=== PATIENT | male | born 1945 | race Caucasian/White ===

== ENCOUNTER → 2017-02-28 | Outpatient (CLI) | payer MEDICARE, BC ==
[2013-10-04 11:09] VITALS: BMI 26.4
[~2017-02-28] MED LIST: ACET-1966 PO; ACYC800T99 PO; AMOX-559 PO; ASP325 PO; ASPI-717 PO; BACL-1 PO; BENZ200C15 PO; BIS10S PR; CAPT50TA PO; CEFU250T11 PO; CEFU500T10 PO; CEPH-13 PO; CIPDEXPT EACH EAR; CLIN-75 PO; DIGO125T73 PO; DOC100 PO; DOCU-416 PO; ENAL-1 PO; ENAL2.5T52 PO; FURO-45 PO; FURO-47 PO; FURO20TA19 PO; GABA-503 PO; GLUC1TAB2; GOLYTE PO; HYDR-385 PO; HYDR-4309; HYDR1TAB PO; HYDR25SU51 RC; KET10 PO; MET50 PO; METO-222 PO; METO-257 PO; METO100T20 PO; METO50TA19 PO; MOD PO; MOM PO; MULT-948 PO; NAPR-1043 PO; NAPR220C12 PO; OSTEOBYFLEX PO; OXYC-763 PO; PRED20TA6 PO; RIV10 PO; RIVA10TA PO; RIVA20TA PO; SPIR1TAB28 PO; SPIR25TA78 PO; TER2 PO; TERA1CAP36 PO; TERA2CAP54 PO; VALA100059 PO; WARF10TA29 PO; [UNRECOGNIZED DRUG - CODE] PO
== END ==
LOC: LAB 13:37
PROVIDERS: ATTEND Nurse Practitioner Family
DX: I10 Essential (primary) hypertension (principal)
CPT/HCPCS: 36415; 82310; 82374; 82435; 82565; 82947; 84132; 84295; 84520

== ENCOUNTER 2017-03-23 01:02 | Day surgery (SDC) | payer MEDICARE, BC ==
[2013-10-04 11:09] VITALS: Ht 182.9 cm; Wt 97.5 kg
[2017-03-23] VITALS (8 sets, daily range): BP systolic 104–139; BP diastolic 71–104
[~2017-03-23] VITALS: Ht 182.9 cm; Wt 97.5 kg
[2017-03-23] MEDS ORDERED: PROPOFOL EMUL(*) 10MG/ML 20 ML 40 ML ONE (07:02)
[2017-03-23] MEDS ORDERED: LIDOCAINE/SOD BICARB 8.4% SYR ID ONE (08:15)
[2017-03-23] MEDS ORDERED: NORMOSOL R SOLN(*) 1000 ML BAG 1,000 ML IV PRN (08:15)
[2017-03-23] MEDS ORDERED: MIDAZOLAM 2 MG/2 ML VIAL IVP ONE (08:15)
[2017-03-23] MEDS ORDERED: PHENYLEPHRINE/NS/PF 0.4MG/10ML ONE ×2 (09:33→10:01)
[2017-03-23] MEDS ORDERED: PROPOFOL EMUL(*) 10MG/ML 20 ML 20 ML ONE (09:48)
--- NOTE | 2017-03-23 10:41 | Short(Outpt) Discharge Summary ---
Discharge Summary Reason for Hosp/Final Diag: (1) Family history of malignant neoplasm of gastrointestinal tract Hospital Course & Plan: Colonoscopy with polypectomy x8 completed without problems. Departure Discharge to: Home, Self Care Discharge Instructions Home Meds Active Scripts Cefuroxime Axetil (CEFUROXIME) 500 Mg Tablet, 1 TAB PO BID, #20 TAB 0 Refills Prov:JAIMIE RAMIREZ APRNP-C 02/28/17 Peg/Electrolytes (GOLYTELY SOLUTION) 4,000 Ml Soln, 1 GAL PO ONCE, #1 GAL 0 Refills Prov:GÉNESIS ESCOBAR MD 02/22/17 Terazosin Hcl (TERAZOSIN HCL) 2 Mg Capsule, 1 CAP PO QHS, #90 CAPSULE 3 Refills Prov:JAIMIE RAMIREZ APRNP- 01/06/17 Metoprolol Tartrate (METOPROLOL TARTRATE) 100 Mg Tablet, 1 TAB PO BID, #180 TAB 3 Refills Prov:JAIMIE RAMIREZ APRNP- 01/06/17 Digoxin (DIGOXIN) 125 Mcg Tablet, 1 TAB PO QDAY, #90 TAB 3 Refills Prov:JAIMIE RAMIREZ APRNP-C 01/06/17 Enalapril Maleate (ENALAPRIL MALEATE) 5 Mg Tablet, 1 TAB PO DAILY, #90 TAB 3 Refills Prov:JAIMIE RAMIREZ APRN [facility] 01/06/17 Hydrocodone Bit/Acetaminophen (HYDROCODON-ACETAMINOPHEN 5-325) 1 Each Tablet, 1 TAB PO Q6H Y for pain, #120 TAB 0 Refills Prov:JAIMIE RAMIREZ APRNP- 09/13/16 Reported Medications Furosemide (FUROSEMIDE) 40 Mg Tablet, 1 TAB PO QODAY, TAB 03/16/17 Spironolactone (SPIRONOLACTONE) 25 Mg Tablet, 25 MG PO QODAY, TAB 03/16/17 Rivaroxaban 10 MG (Xarelto 10 MG) Unknown Strength Tablet, PO QDAY 02/22/17 Discontinued Reported Medications Multivitamin W-Minerals/Lutein (VISION PLUS LUTEIN VITAMIN TAB) 1 Each Tablet, 1 EACH PO DAILY 01/08/16 Discontinued Scripts Benzonatate (BENZONATATE) 200 Mg Capsule, 1 CAP PO TID Y for COUGH, #15 CAPSULE 0 Refills Prov:JAIMIE RAMIREZ APRN [facility]-C 02/28/17 Prednisone (PREDNISONE) 20 Mg Tablet, 2 TAB PO DAILY for 5 Days, #10 TAB 0 Refills Prov:TANYAANA MARIAJAIMIE KEZIA ADMINISTRATOR-C 02/28/17 Furosemide (FUROSEMIDE) 40 Mg Tablet, 0.5 TAB PO EVERY OTHER DAY, #45 TAB 3 Refills Prov:TEDSushilaANA MARIAJAIMIE KEZIA NOONANP-C 01/06/17 Spironolactone (SPIRONOLACTONE) 25 Mg Tab, 0.5 TAB PO QODAY, #45 TAB 3 Refills TAKE ONE-HALF TAB BY MOUTH DAILY UNLESS WEIGHT INCREASES BY 3 POUNDS IN 24 HOURS THEN TAKE ONE TAB. Prov:JAIMIE RAMIREZ KEZIA NOONANP-C 01/06/17 Diet: Regular Activity: As Tolerated Special Instructions: Your colonoscopy was completed without any problems. I removed 8 polyps from your colon and they were sent to pathology. My office will call you in the next week and let you know that the polyps are and when your next colonoscopy should be (likely 3 or 5 years depending on results). Don't start taking Xarelto until 03/26/17, to avoid bleeding at the biopsy sites. Call my office if you experience rectal bleeding or if you would like to have the hemorrhoids removed. GÉNESIS ESCOBAR MD Mar 23, 2017 10:41
== END 2017-03-23 11:30 | disposition home or self-care (01) ==
LOC: OR 01:02
PROVIDERS: ATTEND Surgery
DX: Z12.11 Encounter for screening for malignant neoplasm of colon (principal); Z80.0 Family history of malignant neoplasm of digestive organs; D12.0 Benign neoplasm of cecum; D12.3 Benign neoplasm of transverse colon; D12.4 Benign neoplasm of descending colon; D12.5 Benign neoplasm of sigmoid colon; K62.1 Rectal polyp
CPT/HCPCS: 00811; 45385; 88305; J2370; J2704

== ENCOUNTER → 2017-11-15 | Outpatient (CLI) | payer MEDICARE, BC ==
[2013-10-04 11:09] VITALS: BMI 26.4
[~2017-11-15] MED LIST changes: -SPIR25TA78 PO; +SPIR25TA80 PO
[2017-11-15 14:35] LABS: PLATELET COUNT, AUTOMATED 172 K/uL (150-450)
--- NOTE | 2017-11-15 14:53 | RADIOLOGY IMAGING REPORT ---
FACILITY: [facility] - [place] PATIENT NAME: Jesus Chavez : 1945 MR: [id number] V: [id number] EXAM DATE: ORDERING PHYSICIAN: JAIMIE RAMIREZ TECHNOLOGIST: Location: [facility] Patient: Jesus Chavez : 1945 Visit/Account:[id number] Date of Sevice: 11/15/2017 Left knee Indication: Swollen left knee. Pain. Comparison: None available Findings: 3 views left knee were obtained. Moderate to severe narrowing is seen in the medial compartment with increased sclerosis and marginal osteophytes. Linear chondrocalcinosis projects over the lateral compartment. Mild narrowing is seen l aterally. Lateral view demonstrates narrowing with ossific spurring patellofemoral joint. Moderate to large roberta nt effusion. IMPRESSION: 1. Moderate to severe tricompartmental degenerative changes. Joint effusion without acute osseous fin ding Report Dictated By: Guillermo De Paz MD at 11/15/2017 2:48 PM Report E-Signed By: Guillermo De Paz MD at 11/15/2017 2:49 PM [id number]
== END ==
LOC: RAD 14:05
PROVIDERS: ATTEND Nurse Practitioner Family
DX: M17.12 Unilateral primary osteoarthritis, left knee (principal); M25.462 Effusion, left knee; M25.562 Pain in left knee
CPT/HCPCS: 36415; 85025; 85379; 86140

== ENCOUNTER → 2018-01-20 | Outpatient (CLI) | payer MEDICARE, BC ==
[2013-10-04 11:09] VITALS: BMI 26.4
[~2018-01-20] MED LIST changes: +ENAL-18 PO; -HYDR-4309; +HYDR-653
[2018-01-20 10:20] LABS: PLATELET COUNT, AUTOMATED 179 K/uL (150-450)
== END ==
LOC: LAB 09:54
PROVIDERS: ATTEND Nurse Practitioner Family
DX: Z12.5 Encounter for screening for malignant neoplasm of prostate (principal); Z79.01 Long term (current) use of anticoagulants; R60.9 Edema, unspecified; I48.92 Unspecified atrial flutter; I10 Essential (primary) hypertension
CPT/HCPCS: 36415; 84443; 85025; G0103; 82040; 82247; 82310; 82374; 82435; 82465; 82565; 82947; 83718; 84075; 84132; 84153; 84155; 84295; 84450; 84460; 84478; 84520

== ENCOUNTER → 2018-01-25 | Outpatient (CLI) | payer MEDICARE, BC ==
[2013-10-04 11:09] VITALS: BMI 26.4
--- NOTE | 2018-01-25 17:51 | EKG ---
FACILITY: [facility] PATIENT NAME: YASMEEN DONG : [id number] MR: [id number] V: [id number] EXAM DATE: ORDERING PHYSICIAN: JAIMIE RAMIREZ TECHNOLOGIST: QUAN Test Reason : CHEST PAIN Blood Pressure : / mmHG Vent. Rate : 070 BPM Atrial Rate : 227 BPM P-R Int : 000 ms QRS Dur : 152 ms QT Int : 446 ms P-R-T Axes : 000 086 002 degrees QTc Int : 481 ms Atrial fibrillation with premature ventricular or aberrantly conducted complexes Right bundle branch block Abnormal ECG When compared with ECG of 05-OCT-2016 13:32, Previous ECG has undetermined rhythm, needs review Right bundle branch block has replaced Nonspecific intraventricular block Criteria for Lateral infarct are no longer present Confirmed by RAMIRO LOZANO ([id number]) on 01/26/2018 4:51:50 PM Referred By: ESDRAS Confirmed By:RAMIRO LOZANO
== END ==
LOC: RAD 10:23
PROVIDERS: ATTEND Nurse Practitioner Family
DX: Z02.9 Encounter for administrative examinations, unspecified (principal)

== ENCOUNTER 2018-02-20 12:45 | Emergency (ER) | payer MEDICARE, BC ==
[2013-10-04 11:09] VITALS: Wt 97.5 kg
--- NOTE | 2018-02-20 13:09 | EKG ---
FACILITY: [facility] PATIENT NAME: YASMEEN DONG : [id number] MR: [id number] V: [id number] EXAM DATE: ORDERING PHYSICIAN: DAXA ALEX TECHNOLOGIST: Test Reason : Blood Pressure : / mmHG Vent. Rate : 076 BPM Atrial Rate : 416 BPM P-R Int : 000 ms QRS Dur : 138 ms QT Int : 422 ms P-R-T Axes : 000 080 -10 degrees QTc Int : 474 ms Atrial fibrillation Right bundle branch block T wave abnormality, consider inferior ischemia or digitalis effect Abnormal ECG No previous ECGs available Confirmed by CASPER LANDIS ([id number]) on 02/21/2018 6:37:01 AM Referred By: Confirmed By:CASPER LANDIS
[2018-02-20] MEDS ORDERED: ALBUTEROL/IPRATROPIUM 3 ML NEB NEB ONE (13:10)
[2018-02-20 13:18] LABS: PLATELET COUNT, AUTOMATED 237 K/uL (150-450)
--- NOTE | 2018-02-20 14:16 | RADIOLOGY IMAGING REPORT ---
FACILITY: [facility] PATIENT NAME: Jesus Chavez : 1945 MR: [id number] V: [id number] EXAM DATE: ORDERING PHYSICIAN: DAXA ALEX TECHNOLOGIST: Location: [facility] [place] Patient: Jesus Chavez : 1945 Visit/Account:[id number] Date of Sevice: 02/20/2018 CHEST PA AND LAT HISTORY: Respiratory distress COMPARISON: 10/05/2016 FINDINGS: Cardiomediastinal contours: Normal Lungs and pleura: Stable streaky opacities at the left lung base consistent with scar/atelectasis. No new consolidation or edema. Bones/soft tissues: Severe arthropathy at the bilateral shoulders. Other findings: None significant IMPRESSION: 1. No acute cardiopulmonary disease. No significant change. Report Dictated By: Soham Alvarado MD at 02/20/2018 2:12 PM Report E-Signed By: Soham Alvarado MD at 02/20/2018 2:13 PM WSN:[id number]
--- NOTE | 2018-02-20 14:29 | ER Report ---
History and Physical Time Seen By MD: 13:00 Hx. of Stated Complaint: PATIENT REPORTS COLD TYPE SYMPTOMS FOR 1 WEEK. HE REPORTS FEELING LIGHTHEADED SINCE THIS MORNING HPI/ROS CHIEF COMPLAINT: Cough HISTORY OF PRESENT ILLNESS: 72-year-old male patient presents to emergency room with complaint of cough. Patient states that he's been sick for approximately one week. He denies having any fevers or chills. He denies having any nausea, vomiting or diarrhea. Patient states that he has taken some Mucinex for this with no improvement. He states that today he was coughing and had some pain across his chest and small headedness. This prompted him to come in to the emergency room for evaluation. He denies any loss of consciousness. A rice states that when he gets to coughing that he will cough uncontrollably for a short period time. REVIEW OF SYSTEMS: Respiratory: As noted above Cardiovascular: No chest pain, no palpitations. Gastrointestinal: No vomiting, no abdominal pain. Musculoskeletal: No back pain. Allergies: Coded Allergies: Sulfa (Sulfonamide Antibiotics) (Verified Allergy, Mild, UNKNOWN, 03/20/16) Uncoded Allergies: HORSES (Allergy, Unknown, 10/10/13) Home Meds Active Scripts Benzonatate (BENZONATATE) 200 Mg Capsule, 200 MG PO TID PRN for COUGH, #15 CAP Prov:DAXA ALEX [facility] 02/20/18 Guaifenesin/Codeine (GUAIFENESIN-CODEINE SYRUP) 5 Ml Syrp, 1 TSP PO QHS PRN for COUGH, #35 ML Prov:DAXA ALEX [facility] 02/20/18 Albuterol Sulfate (VENTOLIN HFA) 18 Gm Inh, 2 PUFF INH Q4-6H PRN for SHORTNESS OF BREATH, #1 INH Prov:DAXA ALEX [facility] 02/20/18 Enalapril Maleate (ENALAPRIL MALEATE) 10 Mg Tablet, 1 TAB PO QDAY, #90 TAB 1 Refill Prov:JAIMIE RAMIREZ APRN [facility] 02/09/18 Furosemide (FUROSEMIDE) 40 Mg Tablet, 1 TAB PO QODAY, #36 TAB 0 Refills Prov:JAIMIE RAMIREZ APRN [facility] 01/24/18 Digoxin (DIGOXIN) 125 Mcg Tablet, 1 TAB PO QDAY, #90 TAB 5 Refills Prov:JAIMIE RAMIREZ APRN [facility] 10/03/17 Metoprolol Tartrate (METOPROLOL TARTRATE) 100 Mg Tablet, 1 TAB PO BID, #180 TAB 0 Refills Prov:JAIMIE RAMIREZ APRN [facility] 05/13/17 Terazosin Hcl (TERAZOSIN HCL) 2 Mg Capsule, 1 CAP PO QHS, #90 CAPSULE 3 Refills Prov:JAIMIE RAMIREZ APRN [facility] 01/06/17 Reported Medications Rivaroxaban 20 Mg (XARELTO 20 MG) 20 Mg Tablet, 20 MG PO, TAB 11/15/17 Spironolactone (SPIRONOLACTONE) 25 Mg Tablet, 25 MG PO QODAY, TAB 03/16/17 Discontinued Scripts Hydrocodone Bit/Acetaminophen (HYDROCODON-ACETAMINOPHEN 5-325) 1 Each Tablet, 1 TAB PO Q6H PRN for pain, #120 TAB 0 Refills Prov:JAIMIE RAMIREZ APRN [facility] 01/03/18 Past Medical/Surgical History Patient has a past medical history of atrial flutter, congestive heart failure, DVT, hypertension, diverticulosis, prostate cancer, arthritis, alcohol use. Patient has surgical history of cyst removed, back surgery, left shoulder surgery, bilateral hip replacement, knee surgery 3, hammertoe surgery. Patient has a family medical history of cancer. Reviewed Nurses Notes: Yes Hx Smoking: No Smoking Status: Never Smoker Exposure to Second Hand Smoke?: No Hx Substance Use Disorder: No Hx Alcohol Use: Yes (rare) Constitutional Vital Sign - Last 24 Hours 02/20/18 02/20/18 02/20/18 02/20/18 12:49 12:50 13:00 13:15 Temp 97.6 Pulse 91 86 Resp 28 16 B/P (MAP) 134/81 (98) 134/81 122/86 (98) Pulse Ox 94 95 02/20/18 02/20/18 02/20/18 02/20/18 13:29 13:30 13:38 13:45 Pulse 77 69 78 Resp 16 16 B/P (MAP) 115/73 (87) Pulse Ox 99 02/20/18 02/20/18 02/20/18 02/20/18 14:00 14:15 14:30 14:35 Pulse 69 76 Resp 13 B/P (MAP) 147/81 (103) 142/75 (97) Pulse Ox 90 96 02/20/18 14:45 Pulse 82 Resp 16 Pulse Ox 93 Physical Exam General Appearance: The patient is alert, has no immediate need for airway protection and no current signs of toxicity. Respiratory: Chest is non tender, lungs are clear to auscultation. Cardiac: regular rate and rhythm Gastrointestinal: Abdomen is soft and non tender, no masses, bowel sounds normal. Musculoskeletal: Neck: Neck is supple and non tender. Extremities have full range of motion and are non tender. Skin: No rashes or lesions. DIFFERENTIAL DIAGNOSIS: After history and physical exam differential diagnosis was considered for shortness of breath including but not limited to pulmonary infectious process, COPD, asthma, pulmonary embolus and congestive heart failure. Medical Decision Making Data Points Result Diagram: 02/20/18 1300 02/20/18 1300 Laboratory Hematology Test 02/20/18 12:59 02/20/18 13:00 Influenza Virus Type A (PCR) Negative (NEGATIVE) Influenza Virus Type B (PCR) Negative (NEGATIVE) Red Blood Count 5.18 M/uL (4.00-5.60) Mean Corpuscular Volume 91.5 fL (80.0-96.0) Mean Corpuscular Hemoglobin 31.0 pg (26.0-33.0) Mean Corpuscular Hemoglobin Concent 33.8 g/dL (32.0-36.0) Red Cell Distribution Width 13.6 % (11.5-14.5) Mean Platelet Volume 7.3 fL (7.2-11.1) Neutrophils (%) (Auto) 77.8 % (39.4-72.5) Lymphocytes (%) (Auto) 12.7 % (17.6-49.6) Monocytes (%) (Auto) 7.2 % (4.1-12.4) Eosinophils (%) (Auto) 1.9 % (0.4-6.7) Basophils (%) (Auto) 0.4 % (0.3-1.4) Nucleated RBC Relative Count (auto) 0.0 /100WBC Neutrophils # (Auto) 7.6 K/uL (2.0-7.4) Lymphocytes # (Auto) 1.2 K/uL (1.3-3.6) Monocytes # (Auto) 0.7 K/uL (0.3-1.0) Eosinophils # (Auto) 0.2 K/uL (0.0-0.5) Basophils # (Auto) 0.0 K/uL (0.0-0.1) Nucleated RBC Absolute Count (auto) 0.00 K/uL Sodium Level 137 mmol/L (137-145) Potassium Level 4.5 mmol/L (3.5-5.0) Chloride Level 105 mmol/L (98-107) Carbon Dioxide Level 25 mmol/L (22-30) Blood Urea Nitrogen 20 mg/dl (9-21) Creatinine 1.10 mg/dl (0.66-1.25) Glomerular Filtration Rate Calc > 60.0 Random Glucose 93 mg/dl (75-110) Calcium Level 9.0 mg/dl (8.4-10.2) Total Bilirubin 1.3 mg/dl (0.2-1.3) Aspartate Amino Transf (AST/SGOT) 32 U/L (0-35) Alanine Aminotransferase (ALT/SGPT) 39 U/L (0-56) Alkaline Phosphatase 58 U/L (0-126) Troponin I < 0.012 ng/ml B-Type Natriuretic Peptide 125 pg/ml (0-100) Total Protein 7.5 g/dl (6.3-8.2) Albumin 3.7 g/dl (3.5-5.0) Chemistry Test 02/20/18 12:59 02/20/18 13:00 Influenza Virus Type A (PCR) Negative (NEGATIVE) Influenza Virus Type B (PCR) Negative (NEGATIVE) White Blood Count 9.7 k/uL (4.5-11.0) Red Blood Count 5.18 M/uL (4.00-5.60) Hemoglobin 16.1 g/dL (14.0-18.0) Hematocrit 47.4 % (42.0-52.0) Mean Corpuscular Volume 91.5 fL (80.0-96.0) Mean Corpuscular Hemoglobin 31.0 pg (26.0-33.0) Mean Corpuscular Hemoglobin Concent 33.8 g/dL (32.0-36.0) Red Cell Distribution Width 13.6 % (11.5-14.5) Platelet Count 237 K/uL (150-450) Mean Platelet Volume 7.3 fL (7.2-11.1) Neutrophils (%) (Auto) 77.8 % (39.4-72.5) Lymphocytes (%) (Auto) 12.7 % (17.6-49.6) Monocytes (%) (Auto) 7.2 % (4.1-12.4) Eosinophils (%) (Auto) 1.9 % (0.4-6.7) Basophils (%) (Auto) 0.4 % (0.3-1.4) Nucleated RBC Relative Count (auto) 0.0 /100WBC Neutrophils # (Auto) 7.6 K/uL (2.0-7.4) Lymphocytes # (Auto) 1.2 K/uL (1.3-3.6) Monocytes # (Auto) 0.7 K/uL (0.3-1.0) Eosinophils # (Auto) 0.2 K/uL (0.0-0.5) Basophils # (Auto) 0.0 K/uL (0.0-0.1) Nucleated RBC Absolute Count (auto) 0.00 K/uL Glomerular Filtration Rate Calc > 60.0 Calcium Level 9.0 mg/dl (8.4-10.2) Total Bilirubin 1.3 mg/dl (0.2-1.3) Aspartate Amino Transf (AST/SGOT) 32 U/L (0-35) Alanine Aminotransferase (ALT/SGPT) 39 U/L (0-56) Alkaline Phosphatase 58 U/L (0-126) Troponin I < 0.012 ng/ml B-Type Natriuretic Peptide 125 pg/ml (0-100) Total Protein 7.5 g/dl (6.3-8.2) Albumin 3.7 g/dl (3.5-5.0) EKG/Imaging EKG Interpretation 12 lead EKG: Rhythm: A defibrillation [place]: normal QRS: Right bundle branch block ST segments: normal Imaging CHEST PA AND LAT HISTORY: Respiratory distress COMPARISON: 10/05/2016 FINDINGS: Cardiomediastinal contours: Normal Lungs and pleura: Stable streaky opacities at the left lung base consistent with scar/atelectasis. No new consolidation or edema. Bones/soft tissues: Severe arthropathy at the bilateral shoulders. Other findings: None significant IMPRESSION: 1. No acute cardiopulmonary disease. No significant change. Report Dictated By: Soham Alvarado MD at 02/20/2018 2:12 PM Report E-Signed By: Soham Alvarado MD at 02/20/2018 2:13 PM ED Course/Re-evaluation ED Course Patient was admitted to exam room, history and physical were obtained. Differential diagnoses were considered. On examination lungs are clear, heart is regular, abdomen is soft and nontender. A CBC, CMP, chest x-ray, EKG, troponin were done. Lab results were unremarkable, chest x-ray was negative. EKG showed a atrial fibrillation with right bundle branch block. Troponin was negative. The results were discussed with the patient. I did order an influenza screen later. The results of that were also negative. I discussed the findings with patient. I believe that he does have a viral upper respiratory infection. We will go ahead and give him medicine to help with the cough. He is to increase his fluid intake. I will like him follow-up with his primary care provider. Patient and family member verbalized understanding and agreement with plan. Decision to Disposition Date: Feb 20, 2018 Decision to Disposition Time: 14:35 Depart Departure Latest Vital Signs Vital Signs Date Time Temp Pulse Resp B/P (MAP) Pulse Ox O2 Delivery O2 Flow Rate FiO2 02/20/18 14:45 82 16 93 02/20/18 14:30 142/75 (97) 02/20/18 12:50 97.6 Impression: Primary Impression: Upper respiratory infection Additional Impression: Cough Condition: Improved Disposition: HOME OR SELF-CARE Referrals: JAIMIE RAMIREZ APRNP-C (PCP) New Scripts Benzonatate (BENZONATATE) 200 Mg Capsule 200 MG PO TID PRN for COUGH, #15 CAP Prov: DAXA ALEX [facility] 02/20/18 Guaifenesin/Codeine (GUAIFENESIN-CODEINE SYRUP) 5 Ml Syrp 1 TSP PO QHS PRN for COUGH, #35 ML Prov: DAXA ALEX 02/20/18 Albuterol Sulfate (VENTOLIN HFA) 18 Gm Inh 2 PUFF INH Q4-6H PRN for SHORTNESS OF BREATH, #1 INH Prov: DAXA ALEX 02/20/18 Patient Instructions: Acute Cough (ED) Additional Instructions: Increase fluid intake. Get plenty of rest. Follow up with your primary care provider in the next week. Return to the ER if condition worsens. Take Tylenol or Ibuprofen as needed for pain. Use the inhaler as needed for cough or shortness of breath. Problem Qualifiers Primary Impression: Upper respiratory infection URI type: unspecified viral URI Qualified Codes: J06.9 - Acute upper respiratory infection, unspecified DAXA ALEX Feb 20, 2018 14:29
[2018-02-20 14:30] VITALS: BP 142/75
[2018-02-20] MEDS ORDERED: ALB18R INH (14:33)
[2018-02-20] MEDS ORDERED: ROBC PO (14:33)
[2018-02-20] MEDS ORDERED: BENZ200C15 PO (14:33)
[2018-02-24] MEDS ORDERED: BENZ200C15 PO (16:24)
[2018-02-24] MEDS ORDERED: HYDR5SUS PO (16:45)
[2018-02-24] MEDS ORDERED: PRED20TA6 PO (16:45)
== END 2018-02-20 14:59 | disposition home or self-care (01) ==
LOC: ER 13:15
DX: J06.9 Acute upper respiratory infection, unspecified (principal)
CPT/HCPCS: 71046; 83880; 84484; 85025; 87502; 93005; 94640; 99284; J7620; 82040; 82247; 82310; 82374; 82435; 82565; 82947; 84075; 84132; 84155; 84295; 84450; 84460; 84520

== ENCOUNTER → 2018-02-24 | Outpatient (CLI) | payer MEDICARE, BC ==
[2013-10-04 11:09] VITALS: BMI 26.4
[~2018-02-24] MED LIST changes: +ALB18R INH; +HYDR5SUS PO; +ROBC PO
--- NOTE | 2018-02-24 20:30 | RADIOLOGY IMAGING REPORT ---
FACILITY: [facility] - [place] PATIENT NAME: Jesus Chavez : 1945 MR: [id number] V: [id number] EXAM DATE: ORDERING PHYSICIAN: JAIMIE RAMIREZ TECHNOLOGIST: Location: [facility] [place] Patient: Jesus Chavez : 1945 Visit/Account:[id number] Date of Sevice: 02/24/2018 2 VIEWS CHEST INDICATION: Cough. COMPARISON: 02/20/2018. FINDINGS: Cardiomediastinal silhouette and pulmonary vessels within normal limits. There is no focal infiltrate or lobar consolidation. There is no pneumothorax or pleural effusion. No discrete nodule. Mild scarring seen left lower lobe. Upper abdomen is unremarkable. Mild eventration right hemidiaphragm. No acute bony abnormality. Po stsurgical change the left shoulder which is stable. IMPRESSION: 1. No acute cardiopulmonary process. Report Dictated By: Kip Hope at 02/24/2018 8:23 PM Report E-Signed By: Kip Hope at 02/24/2018 8:25 PM WSN:[id number]
== END ==
LOC: RAD 16:26
PROVIDERS: ATTEND Nurse Practitioner Family
DX: R05 Cough (principal)
CPT/HCPCS: 71046

== ENCOUNTER 2018-05-26 14:27 | Emergency (ER) | payer MEDICARE, BC ==
[2013-10-04 11:09] VITALS: Wt 93.0 kg
[~2018-05-26 14:27] MED LIST changes: +CEPH500C24 PO; -GABA-503 PO; +GABA-533 PO
--- NOTE | 2018-05-26 15:00 | ER Report ---
History and Physical Time Seen By MD: 15:00 Hx. of Stated Complaint: STATESD HE HAD RECTAL BLEEDING HTIS MORNING. HAD A BM WITH COURTNEY RED BLOOD THAT COLORED WATER BRIGHT RED. STATES HISTORY OF DIVERTICULITIS WITH GI BLEEDING THAT USUALLY RESOLVES ON ITS OWN AND IS MINIMAL BLEEDING. HPI/ROS CHIEF COMPLAINT: blood with bowel movement HISTORY OF PRESENT ILLNESS: Patient has been feeling fine. Had a normal bowel movement this morning. About an hour ago patient had a loose bowel movement and had bright red blood in it. Patient states that he had more blood after the actual bowel movement. Patient states he has a history of diverticulitis and bleeding hemorrhoids. REVIEW OF SYSTEMS: Respiratory: No cough, no dyspnea. Cardiovascular: No chest pain, no palpitations. Gastrointestinal: No nausea or vomiting, no abdominal pain except for some "irritation" down low. Musculoskeletal: No back pain. Allergies: Coded Allergies: Sulfa (Sulfonamide Antibiotics) (Verified Allergy, Mild, UNKNOWN, 05/26/18) Uncoded Allergies: HORSES (Allergy, Unknown, 10/10/13) Home Meds Active Scripts Hydrocortisone Acetate (CORTIFOAM) 15 Gm Foam.appl, 1 LEE ANN RC BID for 7 Days, #1 BOTTLE Prov:DAXA ALEX 05/26/18 Enalapril Maleate (ENALAPRIL MALEATE) 10 Mg Tablet, 1 TAB PO QDAY, #90 TAB 1 Refill Prov:JAIMIE RAMIREZ APRNP-C 05/05/18 Metoprolol Tartrate (METOPROLOL TARTRATE) 100 Mg Tablet, 1 TAB PO BID, #180 TAB 1 Refill Prov:JAIMIE RAMIREZ APRNP-C 05/05/18 Furosemide (FUROSEMIDE) 40 Mg Tablet, 1 TAB PO QODAY, #36 TAB 1 Refill Prov:JAIMIE RAMIREZ APRNP-C 04/18/18 Spironolactone (SPIRONOLACTONE) 25 Mg Tablet, 25 MG PO QODAY, #45 TAB 1 Refill Prov:JAIMIE RAMIREZ APRNP-C 04/18/18 Terazosin Hcl (TERAZOSIN HCL) 2 Mg Capsule, 1 CAP PO QHS, #90 CAPSULE 1 Refill Prov:JAIMIE RAMIREZ APRNP-C 03/21/18 Digoxin (DIGOXIN) 125 Mcg Tablet, 1 TAB PO QDAY, #90 TAB 5 Refills Prov:JAIMIE RAMIREZ APRN [facility] 03/08/18 Hydrocodone/Chlorphen Polis (HYDROCODONE-CHLORPHENIRAM SUSP) 5 Ml Allie.er.12h, 5 ML PO Q12H PRN for COUGH, #60 ML 0 Refills Prov:JAIMIE RAMIREZ APRN [facility] 02/27/18 Reported Medications Rivaroxaban 20 Mg (XARELTO 20 MG) 20 Mg Tablet, 20 MG PO, TAB 11/15/17 Discontinued Scripts Cephalexin Monohydrate (CEPHALEXIN) 500 Mg Cap, 1 CAP PO QID for 10 Days, #40 CAP 0 Refills Prov:HENRY REYES DNP, [facility] 04/17/18 Prednisone (PREDNISONE) 20 Mg Tablet, 2 TAB PO QDAY, #10 TAB 0 Refills Prov:JAIMIE RAMIREZ APRN [facility] 02/24/18 Benzonatate (BENZONATATE) 200 Mg Capsule, 200 MG PO TID PRN for COUGH, #15 CAP Prov:JAIMIE RAMIREZ APRN [facility] 02/24/18 Albuterol Sulfate (VENTOLIN HFA) 18 Gm Inh, 2 PUFF INH Q4-6H PRN for SHORTNESS OF BREATH, #1 INH Prov:DAXA ALEX [facility] 02/20/18 Past Medical/Surgical History Patient medical history includes atrial fib/flutter, DVT, hypertension, diverticulosis, prostrate cancer, arthritis, cellulitis bilateral legs. Patient surgical history was shoulder knee, bilateral hip replacements, hammer toe, and cyst removal. Reviewed Nurses Notes: Yes Hx Smoking: No Smoking Status: Never Smoker Exposure to Second Hand Smoke?: No Hx Substance Use Disorder: No Hx Alcohol Use: Yes (rare) Constitutional Vital Sign - Last 24 Hours 05/26/18 05/26/18 05/26/18 05/26/18 14:35 14:40 14:44 14:45 Temp 98.4 Pulse 83 Resp 20 B/P (MAP) 129/81 129/81 (97) 119/66 (83) Pulse Ox 90 O2 Delivery Room Air O2 Flow Rate 2.0 05/26/18 05/26/18 05/26/18 05/26/18 15:00 15:30 15:37 15:45 Pulse 72 ??? B/P (MAP) 116/61 (79) 132/92 (105) 139/74 (95) Pulse Ox 92 05/26/18 05/26/18 05/26/18 05/26/18 16:00 16:15 16:30 16:45 Pulse ??? 76 Resp 14 B/P (MAP) ???/??? (1665) 147/92 (110) 152/93 (112) 171/79 (109) Pulse Ox 97 Physical Exam General Appearance: The patient is alert, has no immediate need for airway protection and no current signs of toxicity. Eyes: Pupils equal and round no injection. Respiratory: Chest is non tender, lungs are clear to auscultation. Cardiac: regular rate and rhythm Gastrointestinal: Abdomen is soft and non tender, no masses, bowel sounds normal. Musculoskeletal: Neck: Neck is supple and non tender. Skin: Patient has a cyst mid back. Patient states that he has had it removed several times. Black macule with irregular boarder noted to the left of the cyst. DIFFERENTIAL DIAGNOSIS: After history and physical exam differential diagnosis was considered for bleeding hemorrhoids, GI bleed, diverticulitis. Medical Decision Making Data Points Result Diagram: 05/26/18 1510 05/26/18 1510 Laboratory Hematology Test 05/26/18 15:10 05/26/18 15:22 05/26/18 15:30 Red Blood Count 5.18 M/uL (4.00-5.60) Mean Corpuscular Volume 90.9 fL (80.0-96.0) Mean Corpuscular Hemoglobin 30.6 pg (26.0-33.0) Mean Corpuscular Hemoglobin Concent 33.7 g/dL (32.0-36.0) Red Cell Distribution Width 14.5 % (11.5-14.5) Mean Platelet Volume 7.5 fL (7.2-11.1) Neutrophils (%) (Auto) 72.1 % (39.4-72.5) Lymphocytes (%) (Auto) 18.4 % (17.6-49.6) Monocytes (%) (Auto) 6.6 % (4.1-12.4) Eosinophils (%) (Auto) 2.6 % (0.4-6.7) Basophils (%) (Auto) 0.3 % (0.3-1.4) Nucleated RBC Relative Count (auto) 0.1 /100WBC Neutrophils # (Auto) 4.9 K/uL (2.0-7.4) Lymphocytes # (Auto) 1.3 K/uL (1.3-3.6) Monocytes # (Auto) 0.4 K/uL (0.3-1.0) Eosinophils # (Auto) 0.2 K/uL (0.0-0.5) Basophils # (Auto) 0.0 K/uL (0.0-0.1) Nucleated RBC Absolute Count (auto) 0.01 K/uL Prothrombin Time 19.3 seconds (12.0-14.4) Prothromb Time International Ratio 1.60 Activated Partial Thromboplast Time 48 seconds (23-35) Sodium Level 141 mmol/L (137-145) Potassium Level 3.9 mmol/L (3.5-5.0) Chloride Level 105 mmol/L (98-107) Carbon Dioxide Level 28 mmol/L (22-30) Blood Urea Nitrogen 26 mg/dl (9-21) Creatinine 1.30 mg/dl (0.66-1.25) Glomerular Filtration Rate Calc 54.4 Random Glucose 77 mg/dl (75-110) Calcium Level 8.8 mg/dl (8.4-10.2) Total Bilirubin 1.0 mg/dl (0.2-1.3) Aspartate Amino Transf (AST/SGOT) 26 U/L (0-35) Alanine Aminotransferase (ALT/SGPT) 31 U/L (0-56) Alkaline Phosphatase 70 U/L (0-126) Total Protein 7.1 g/dl (6.3-8.2) Albumin 3.9 g/dl (3.5-5.0) Amylase Level 66 U/L (0-110) Lipase 87 U/L (23-300) Helicobacter pylori IgG Antibody Negative (NEGATIVE) Stool Occult Blood (IFOB) Positive (NEGATIVE) Urine Color Yellow Urine Clarity Clear Urine pH 6.0 pH (4.8-9.5) Urine Specific [place] 1.013 Urine Protein Negative mg/dL (NEGATIVE) Urine Glucose (UA) Negative mg/dL (NEGATIVE) Urine Ketones Negative mg/dL (NEGATIVE) Urine Blood Negative (NEGATIVE) Urine Nitrite Negative (NEGATIVE) Urine Bilirubin Negative (NEGATIVE) Urine Urobilinogen 2.0 mg/dL (0.2-1.9) Urine Leukocyte Esterase Negative (NEGATIVE) Urine RBC None /HPF (0-2/HPF) Urine WBC <1 /HPF (0-5/HPF) Urine Squamous Epithelial Cells Few /LPF (</=FEW) Urine Bacteria Negative /HPF (NONE-FEW) Urine Mucus None /HPF (NONE-FEW) Chemistry Test 05/26/18 15:10 05/26/18 15:22 05/26/18 15:30 White Blood Count 6.9 k/uL (4.5-11.0) Red Blood Count 5.18 M/uL (4.00-5.60) Hemoglobin 15.9 g/dL (14.0-18.0) Hematocrit 47.1 % (42.0-52.0) Mean Corpuscular Volume 90.9 fL (80.0-96.0) Mean Corpuscular Hemoglobin 30.6 pg (26.0-33.0) Mean Corpuscular Hemoglobin Concent 33.7 g/dL (32.0-36.0) Red Cell Distribution Width 14.5 % (11.5-14.5) Platelet Count 212 K/uL (150-450) Mean Platelet Volume 7.5 fL (7.2-11.1) Neutrophils (%) (Auto) 72.1 % (39.4-72.5) Lymphocytes (%) (Auto) 18.4 % (17.6-49.6) Monocytes (%) (Auto) 6.6 % (4.1-12.4) Eosinophils (%) (Auto) 2.6 % (0.4-6.7) Basophils (%) (Auto) 0.3 % (0.3-1.4) Nucleated RBC Relative Count (auto) 0.1 /100WBC Neutrophils # (Auto) 4.9 K/uL (2.0-7.4) Lymphocytes # (Auto) 1.3 K/uL (1.3-3.6) Monocytes # (Auto) 0.4 K/uL (0.3-1.0) Eosinophils # (Auto) 0.2 K/uL (0.0-0.5) Basophils # (Auto) 0.0 K/uL (0.0-0.1) Nucleated RBC Absolute Count (auto) 0.01 K/uL Prothrombin Time 19.3 seconds (12.0-14.4) Prothromb Time International Ratio 1.60 Activated Partial Thromboplast Time 48 seconds (23-35) Glomerular Filtration Rate Calc 54.4 Calcium Level 8.8 mg/dl (8.4-10.2) Total Bilirubin 1.0 mg/dl (0.2-1.3) Aspartate Amino Transf (AST/SGOT) 26 U/L (0-35) Alanine Aminotransferase (ALT/SGPT) 31 U/L (0-56) Alkaline Phosphatase 70 U/L (0-126) Total Protein 7.1 g/dl (6.3-8.2) Albumin 3.9 g/dl (3.5-5.0) Amylase Level 66 U/L (0-110) Lipase 87 U/L (23-300) Helicobacter pylori IgG Antibody Negative (NEGATIVE) Stool Occult Blood (IFOB) Positive (NEGATIVE) Urine Color Yellow Urine Clarity Clear Urine pH 6.0 pH (4.8-9.5) Urine Specific [place] 1.013 Urine Protein Negative mg/dL (NEGATIVE) Urine Glucose (UA) Negative mg/dL (NEGATIVE) Urine Ketones Negative mg/dL (NEGATIVE) Urine Blood Negative (NEGATIVE) Urine Nitrite Negative (NEGATIVE) Urine Bilirubin Negative (NEGATIVE) Urine Urobilinogen 2.0 mg/dL (0.2-1.9) Urine Leukocyte Esterase Negative (NEGATIVE) Urine RBC None /HPF (0-2/HPF) Urine WBC <1 /HPF (0-5/HPF) Urine Squamous Epithelial Cells Few /LPF (</=FEW) Urine Bacteria Negative /HPF (NONE-FEW) Urine Mucus None /HPF (NONE-FEW) Coagulation Test 05/26/18 15:10 Prothrombin Time 19.3 seconds Prothromb Time International Ratio 1.60 Activated Partial Thromboplast Time 48 seconds Urinalysis Test 05/26/18 15:30 Urine Color Yellow Urine Clarity Clear Urine pH 6.0 pH (4.8-9.5) Urine Specific [place] 1.013 Urine Protein Negative mg/dL (NEGATIVE) Urine Glucose (UA) Negative mg/dL (NEGATIVE) Urine Ketones Negative mg/dL (NEGATIVE) Urine Blood Negative (NEGATIVE) Urine Nitrite Negative (NEGATIVE) Urine Bilirubin Negative (NEGATIVE) Urine Urobilinogen 2.0 mg/dL (0.2-1.9) Urine Leukocyte Esterase Negative (NEGATIVE) Urine RBC None /HPF (0-2/HPF) Urine WBC <1 /HPF (0-5/HPF) Urine Squamous Epithelial Cells Few /LPF (</=FEW) Urine Bacteria Negative /HPF (NONE-FEW) Urine Mucus None /HPF (NONE-FEW) EKG/Imaging Imaging EXAMINATION: CT abdomen and pelvis with contrast COMPARISON: None. HISTORY: diarrhea, bleeding, hx of diverticulitis PROCEDURE: Multiplanar contrast enhanced CT of the abdomen and pelvis with 90 mL intravenous Isovue 370. One of the following dose optimization techniques was utilized in the performance of this exam: Automated exposure control; adjustment of the mA and/or kV according to the patient's size; or use of an iterative reconstruction technique. Specific details can be referenced in the facility's radiology CT exam operational policy. FINDINGS: Visualized thorax: Coronary calcifications. Lung base mild volume loss versus scarring. Liver: Questionable mild micronodular contour. No discrete mass is identified. Gallbladder and biliary system: Negative Spleen: Negative. Pancreas: Negative. Adrenal glands: Negative. Kidneys and bladder: Bilateral mild to moderate perinephric stranding and trace perinephric fluid. Renal parenchyma otherwise enhances fairly homogeneously with no definite site of acute inflammation identified. Bilateral renal cysts including a dominant 3.7 cm cyst in the left kidney midpole. Left kidney upper pole 1.0 cm exophytic intermediate attenuation lesion. No hydronephrosis. The distal ureters are obstructed by streak artifact from the hip arthroplasty; no radiopaque ureteral stone is otherwise identified. Urinary bladder is nearly completely obscured by artifact. Vessels: Aortoiliac moderate atherosclerosis. No abdominal aortic aneurysm. Portal venous system and IVC are within normal limits. Bowel and mesentery: Stomach, small bowel, and appendix are within normal limits. Pancolonic advanced diverticulosis. A small portion of the distal sigmoid colon is obscured by artifact from the arthroplasties. Otherwise, no bowel or mesenteric inflammation. There is mild thickening of the perianal subcutaneous soft tissues but no definite perianal fluid collection is identified. Pelvic organs: Brachytherapy seeds. Lymph nodes: No adenopathy. Free air/free fluid: None. Abdominal wall and osseous structures: Small fat-containing umbilical hernia. Bilateral hip arthroplasties. Lumbar spine multilevel advanced degenerative disc disease with a resultant dextroscoliosis. No acute findings. IMPRESSION: 1. Bilateral perinephric stranding and trace perinephric fluid is suggestive of medical renal disease. There is no definite evidence of focal parenchymal inflammation and a bilateral urinary tract infection is considered less likely. 2. Mild thickening of the perianal soft tissues but no definite perianal fluid collection. Correlation with any clinical evidence of perianal infection/abscess is recommended. 3. Pancolonic advanced diverticulosis with no findings of diverticulitis. 4. Left kidney upper pole 1.0 cm exophytic intermediate attenuation lesion. Although a hyperdense cyst is favored, a solid lesion cannot be excluded and further characterization by nonemergent renal ultrasound is recommended. 5. Questionable micronodular contour to the liver. Correlation with any evidence of hepatocellular disease is recommended. 6. Additional chronic/incidental findings as detailed above. Results were discussed with DAXA ALEX at 05/26/2018 4:40 PM. Report Dictated By: Hardeep Maya MD at 05/26/2018 4:25 PM Report E-Signed By: Hardeep Maya MD at 05/26/2018 4:41 PM ED Course/Re-evaluation ED Course Patient was admitted to the room and placed in the bed. History and physical were obtained. Differential diagnoses were considered. IV was placed and lab work drawn. An occult stool was obtained which was positive. CT scan of the abdomen was obtained. Results demonstrated diverticulosis but not diverticulitis. Results of testing was discussed with the patient. It is my believe that this time that the bleeding likely is from either internal hemorrhoids or inflammation around the distal colon. As a result of that were deferred place the patient on Carafate or Protonix. Instructions given to patient for worsening signs and symptoms. Steroid cream prescribed for the patient. Patient discharged to home. Decision to Disposition Date: May 26, 2018 Decision to Disposition Time: 16:49 Depart Departure Latest Vital Signs Vital Signs Date Time Temp Pulse Resp B/P (MAP) Pulse Ox O2 Delivery O2 Flow Rate FiO2 05/26/18 16:45 171/79 (109) 05/26/18 16:30 76 14 97 05/26/18 14:44 2.0 05/26/18 14:35 98.4 Room Air Impression: Primary Impression: Bleeding internal hemorrhoids Condition: Improved Disposition: HOME OR SELF-CARE Referrals: JAIMIE RAMIREZ APRN-C (PCP) New Scripts Hydrocortisone Acetate (CORTIFOAM) 15 Gm Foam.appl 1 LEE ANN RC BID for 7 Days, #1 BOTTLE Prov: DAXA ALEX 05/26/18 Patient Instructions: Hemorrhoids (ED) Additional Instructions: Increase fluid intake. Get plenty of rest. Take the medication twice a day for the next week. Return to the ER if you continue to have bloody stools. Continue with her normal medications. DAXA ALEX May 26, 2018 15:00
[2018-05-26] MEDS ORDERED: NS(*) 0.9% 1000 ML BAG 1,000 ML IV ONE (15:14)
[2018-05-26] MEDS ORDERED: IOPAMIDOL 76% 150 ML INFUS BTL 150 ML ONE (15:30)
[2018-05-26 15:33] LABS: INR 1.6
[2018-05-26 15:56] LABS: PLATELET COUNT, AUTOMATED 212 K/uL (150-450)
[2018-05-26 16:45] VITALS: BP 171/79
--- NOTE | 2018-05-26 16:46 | RADIOLOGY IMAGING REPORT ---
FACILITY: [facility] - [place] PATIENT NAME: Jesus Chavez : 1945 MR: [id number] V: [id number] EXAM DATE: ORDERING PHYSICIAN: DAXA ALEX TECHNOLOGIST: Location: [facility] Patient: Jesus Chavez : 1945 Visit/Account:[id number] Date of Sevice: 05/26/2018 EXAMINATION: CT abdomen and pelvis with contrast COMPARISON: None. HISTORY: diarrhea, bleeding, hx of diverticulitis PROCEDURE: Multiplanar contrast enhanced CT of the abdomen and pelvis with 90 mL intravenous Isovue 3 70. One of the following dose optimization techniques was utilized in the performance of this exam: A utomated exposure control; adjustment of the mA and/or kV according to the patient's size; or use of an iterative reconstruction technique. Specific details can be referenced in the facility's radiolo gy CT exam operational policy. FINDINGS: Visualized thorax: Coronary calcifications. Lung base mild volume loss versus scarring. Liver: Questionable mild micronodular contour. No discrete mass is identified. Gallbladder and biliary system: Negative Spleen: Negative. Pancreas: Negative. Adrenal glands: Negative. Kidneys and bladder: Bilateral mild to moderate perinephric stranding and trace perinephric fluid. Re nal parenchyma otherwise enhances fairly homogeneously with no definite site of acute inflammation id entified. Bilateral renal cysts including a dominant 3.7 cm cyst in the left kidney midpole. Left kid lawrence upper pole 1.0 cm exophytic intermediate attenuation lesion. No hydronephrosis. The distal ureter s are obstructed by streak artifact from the hip arthroplasty; no radiopaque ureteral stone is otherw ise identified. Urinary bladder is nearly completely obscured by artifact. Vessels: Aortoiliac moderate atherosclerosis. No abdominal aortic aneurysm. Portal venous system and IVC are within normal limits. Bowel and mesentery: Stomach, small bowel, and appendix are within normal limits. Pancolonic advanced diverticulosis. A small portion of the distal sigmoid colon is obscured by artifact from the arthrop lasties. Otherwise, no bowel or mesenteric inflammation. There is mild thickening of the perianal sub cutaneous soft tissues but no definite perianal fluid collection is identified. Pelvic organs: Brachytherapy seeds. Lymph nodes: No adenopathy. Free air/free fluid: None. Abdominal wall and osseous structures: Small fat-containing umbilical hernia. Bilateral hip arthropla sties. Lumbar spine multilevel advanced degenerative disc disease with a resultant dextroscoliosis. N o acute findings. IMPRESSION: 1. Bilateral perinephric stranding and trace perinephric fluid is suggestive of medical renal disease . There is no definite evidence of focal parenchymal inflammation and a bilateral urinary tract infec tion is considered less likely. 2. Mild thickening of the perianal soft tissues but no definite perianal fluid collection. Correlatio n with any clinical evidence of perianal infection/abscess is recommended. 3. Pancolonic advanced diverticulosis with no findings of diverticulitis. 4. Left kidney upper pole 1.0 cm exophytic intermediate attenuation lesion. Although a hyperdense cys t is favored, a solid lesion cannot be excluded and further characterization by nonemergent renal ult rasound is recommended. 5. Questionable micronodular contour to the liver. Correlation with any evidence of hepatocellular di sease is recommended. 6. Additional chronic/incidental findings as detailed above. Results were discussed with DAXA ALEX at 05/26/2018 4:40 PM. Report Dictated By: Hardeep Maya MD at 05/26/2018 4:25 PM Report E-Signed By: Hardeep Maya MD at 05/26/2018 4:41 PM WSN:[id number]
[2018-05-26] MEDS ORDERED: HYDR15FO RC (16:51)
== END 2018-05-26 16:58 | disposition home or self-care (01) ==
LOC: ER 15:28
DX: K64.8 Other hemorrhoids (principal)
CPT/HCPCS: 74177; 81001; 82150; 82274; 83690; 85025; 85610; 85730; 86677; 96360; 99284; J7030; Q9967; 82040; 82247; 82310; 82374; 82435; 82565; 82947; 84075; 84132; 84155; 84295; 84450; 84460; 84520

== ENCOUNTER → 2018-08-10 | Outpatient (CLI) | payer MEDICARE, BC ==
[2013-10-04 11:09] VITALS: BMI 26.4
[~2018-08-10] MED LIST changes: +ENAL20TA99 PO; +HYDR15FO RC
--- NOTE | 2018-08-10 15:11 | RADIOLOGY IMAGING REPORT ---
FACILITY: [facility] - [place] PATIENT NAME: Jesus Chavez : 1945 MR: [id number] V: [id number] EXAM DATE: ORDERING PHYSICIAN: JAIMIE RAMIREZ TECHNOLOGIST: Location: [facility] [place] Patient: Jesus Chavez : 1945 Visit/Account:[id number] Date of Sevice: 08/10/2018 Pelvis one view: HISTORY: Fell one of weeks ago. Pain in right hip. Pain is worsening with each day. COMPARISON: 01/22/2009 FINDINGS: AP view was obtained of the pelvis. Patient has bilateral hip prostheses in place femoral and acetabular components appear in anatomic alignment bilaterally without significant interval sidhu e. Both femoral stems are well centered within the medullary cavity. There is no fracture identifie d. No evidence of loosening. Pelvic ring is intact. Mild narrowing present in the symphysis and SI joints, left greater than righ t. There are no lytic or sclerotic bony lesions identified within the pelvis. Degenerative changes present in the lower lumbar spine. Radiation seeds noted in the prostate. IMPRESSION: 1. Bilateral hip prostheses with anatomic alignment of the components. There is no radiographic soheila dence of loosening. 2. No fracture or other acute osseous abnormality. 3. Degenerative changes in the symphysis and SI joints, left greater than right. 4. No aggressive bony lesion identified. Report Dictated By: Christy Brown MD at 08/10/2018 2:59 PM Report E-Signed By: Christy Brown MD at 08/10/2018 3:04 PM WSN:[id number]
== END ==
LOC: RAD 12:17
PROVIDERS: ATTEND Nurse Practitioner Family
DX: M25.551 Pain in right hip (principal); Z96.643 Presence of artificial hip joint, bilateral
CPT/HCPCS: 72170

== ENCOUNTER → 2018-08-10 | Outpatient (CLI) | payer MEDICARE, BC ==
[2013-10-04 11:09] VITALS: BMI 26.4
== END ==
LOC: LAB 11:36
PROVIDERS: ATTEND Nurse Practitioner
DX: I78.1 Nevus, non-neoplastic (principal); D04.71 Carcinoma in situ of skin of right lower limb, including hip
CPT/HCPCS: 88305

== ENCOUNTER → 2018-09-19 | Outpatient (CLI) | payer MEDICARE, BC ==
[2013-10-04 11:09] VITALS: BMI 26.4
== END ==
LOC: LAB 14:22
PROVIDERS: ATTEND Surgery
DX: D04.71 Carcinoma in situ of skin of right lower limb, including hip (principal)
CPT/HCPCS: 88305